=== PATIENT | male | born 2000 | race African-American/Black ===

== ENCOUNTER 2023-02-28 15:43 | Emergency (ER) | payer BC ==
[~2023-02-28] VITALS: Ht 172.7 cm; Wt 59.0 kg
[2023-02-28 15:52] VITALS: O2SAT 99
[2023-02-28] MEDS ORDERED: AMOX1TAB16 MT (18:10)
[2023-02-28 19:11] VITALS: BP 131/89; PULSE 84; RESP 18; TEMP 98.7
== END 2023-02-28 19:14 | disposition home or self-care (01) ==
LOC: ER 15:43
DX: S61.011A Laceration without foreign body of right thumb without damage to nail, initial encounter (principal); F12.10 Cannabis abuse, uncomplicated; W25.XXXA Contact with sharp glass, initial encounter; Y93.89 Activity, other specified; Y92.89 Other specified places as the place of occurrence of the external cause; Y99.8 Other external cause status
CPT/HCPCS: 12002; 99283

== ENCOUNTER 2023-03-07 14:36 | Emergency (ER) | payer BC ==
[~2023-03-07] VITALS: Ht 175.3 cm; Wt 74.0 kg
[~2023-03-07 14:36] MED LIST: AMOX1TAB16 MT
[2023-03-07 14:41] VITALS: PULSE 78; RESP 16
[2023-03-07 15:10] VITALS: BP 138/89; TEMP 98.5; O2SAT 100
== END 2023-03-07 16:21 | disposition home or self-care (01) ==
LOC: ER 15:12
DX: Z48.02 Encounter for removal of sutures (principal); Z48.00 Encounter for change or removal of nonsurgical wound dressing
CPT/HCPCS: 99281